=== PATIENT | female | born 1975 | race Caucasian/White ===

== ENCOUNTER → 2018-01-27 14:25 | Outpatient (CLI) | payer MEDICAID, SELFPAY ==
--- NOTE | 2018-01-27 14:26 | XR_ITS ---
XR foot wt bearing RT 3V HISTORY: Follow-up fracture, pain ITS.REASON: PAIN ORDERING PHYSICIAN: Heather Goodrich DPM PATIENT AGE: 42 years COMPARISON: None FINDINGS: No fracture or dislocation. No lytic or blastic change. There is normal mineralization.. The joint spaces are well-preserved. No significant degenerative/arthritic changes. No erosive changes evident. IMPRESSION: Negative, no acute finding
--- NOTE | 2018-01-27 14:26 | XR_ITS ---
XR ankle wt bearing RT min 3V HISTORY: Follow-up fracture, pain ITS.REASON: PAIN ORDERING PHYSICIAN: Heather Goodrich DPM PATIENT AGE: 42 years Comparison: [id number] FINDINGS: The avulsion fracture at the tip the lateral malleolus is somewhat less apparent with healing at fracture site. Fracture is nondisplaced. No other significant anomalies are evident. IMPRESSION: Healing nondisplaced avulsion fracture at the tip of the lateral malleolus
== END ==
PROVIDERS: Visit Provider Podiatrist
DX: S99.911A Unspecified injury of right ankle, initial encounter (principal)
CPT/HCPCS: 73610; 73630